=== PATIENT | female | born 1985 | race Caucasian/White ===

== ENCOUNTER 2021-09-05 09:31 | Emergency (ER) | payer MEDICAID ==
[~2021-09-05] VITALS: Ht 154.9 cm; Wt 65.9 kg
[~2021-09-05 09:31] MED LIST: PRENATALS
[2021-09-05 09:59] VITALS: BP 117/84
== END 2021-09-05 12:07 | disposition left against medical advice (07) ==
LOC: EMS 09:33
DX: R21 Rash and other nonspecific skin eruption (principal); Z53.21 Procedure and treatment not carried out due to patient leaving prior to being seen by health care provider